=== PATIENT | male | born 1945 | race Caucasian/White ===

== ENCOUNTER → 2017-09-12 | Day surgery (SDC) | payer OTHER ==
[2017-08-28 15:25] VITALS: BMI 32.0
[~2017-09-12] VITALS: Ht 182.9 cm; Wt 106.8 kg
[~2017-09-12] MED LIST: CMD4 PO; CYAN100020 PO; FINA5TAB PO; LIDOCAINE HCL 2% 2 ML VIAL (20MG/ML) ONE; MIDAZOLAM HCL 1 MG/ML 2ML VIAL ONE; PROPOFOL IV EMULSION 10 MG/ML 20 ML VIAL IV ONE; SODIUM CHLORIDE 0.9% 500ML 500 ML IV ONE; TAMS0.4C38 PO; TRIATAB3 PO
[2017-09-12 10:56] VITALS: Ht 182.9 cm; Wt 106.8 kg
--- NOTE | 2017-09-12 11:16 | Endo History and Physical ---
History & Physical Date of Service: Sep 12, 2017. Chief Complaint: SCREENING Referring Physician: DR GIOVANY TERRELL History of Present Illness 72 yo CM who presents for screening colonoscopy. Past Surgical History Hx Cardiac Surgery: No Hx Internal Defibrillator: No Hx Pacemaker: No Hx Abdominal Surgery: Yes (APPY) Hx of Implantable Prosthesis: No Hx Post-Op Nausea and Vomiting: No Hx Cancer Surgery: Yes (SKIN EXCISION REMOVED) Hx Thoracic Surgery: No Hx Orthopedic: No Hx Urinary Tract Surgery: No Family History None Social History Smoking Status: Never Smoker Hx Substance Use: No Hx Alcohol Use: Yes (OCCASIONALLY) Allergies Coded Allergies: No Known Allergies (Unverified , 09/12/17) Current Medications Reported Home Medications Medications Dose Route/Sig Max Daily Dose Days Date Category Dose Instructions Vitamin B12 (Cyanocobalamin) 1,000 Mcg Tab 1 Tab PO QAM 08/28/17 Reported Proscar (Finasteride) 5 Mg Tab 5 Mg PO QAM 08/28/17 Reported Triamterene/Hctz 37.5-25MG (Triamterene/HCTZ) 1 Tab Tab 1 Tab PO QAM 08/28/17 Reported Flomax (Tamsulosin Hcl) 0.4 Mg Cap 0.4 Mg PO QAM 08/28/17 Reported Coumadin (Warfarin Sod) 4 Mg Tab 1 Tab PO DIRECTED 08/28/17 Reported TAKES 4 MG, 4MG, 2MG AND REPEAT Vital Signs Weight (Kilograms): 106.82 Height (Feet): 6 Height (Inches): 0 Date Time Temp Pulse Resp B/P (MAP) Pulse Ox O2 Delivery O2 Flow Rate FiO2 09/12/17 11:08 36.6 80 20 134/75 (94) 95 Room Air Physical Exam General Appearance: WD/WN, no apparent distress Respiratory/Chest: Auscultation: breath sounds normal Cardiovascular: Heart Auscultation: RRR Abdomen: Bowel Sounds: normal Inspection & Palpation: soft, non-distended, no tenderness, guarding & rebound Assessment and Plan Assessment: 72 yo CM who presents for screening colonoscopy. Plan: Proceed with colonoscopy.
--- NOTE | 2017-09-12 12:14 | GI REPORT ---
Procedure Date: 09/12/2017 11:21 AM Procedure: Colonoscopy Indications: Screening for colorectal malignant neoplasm Medicines: Monitored Anesthesia Care Complications: No immediate complications. Estimated Blood Loss: Estimated blood loss: none. Procedure: Pre-Anesthesia Assessment: - Prior to the procedure, a History and Physical was performed, and patient medications and allergies were reviewed. The patient's tolerance of previous anesthesia was also reviewed. The risks and benefits of the procedure and the sedation options and risks were discussed with the patient. All questions were answered, and informed consent was obtained. Prior Anticoagulants: The patient has taken Coumadin (warfarin), last dose was 6 days prior to procedure. ASA Grade Assessment: II - A patient with mild systemic disease. After reviewing the risks and benefits, the patient was deemed in satisfactory condition to undergo the procedure. After I obtained informed consent, the scope was passed under direct vision. Throughout the procedure, the patient's blood pressure, pulse, and oxygen saturations were monitored continuously. The scope was introduced through the anus and advanced to the terminal ileum. The colonoscopy was performed without difficulty. The patient tolerated the procedure well. The quality of the bowel preparation was good. The terminal ileum, ileocecal valve, appendiceal orifice, and rectum were photographed. Findings: The perianal and digital rectal examinations were normal. Scattered small-mouthed diverticula were found in the entire colon. Non-bleeding internal hemorrhoids were found during retroflexion. The hemorrhoids were small. Impression: - Diverticulosis in the entire examined colon. - Non-bleeding internal hemorrhoids. - No specimens collected. Recommendation: - Resume previous diet. - Continue present medications. - No repeat colonoscopy due to age and the absence of advanced adenomas. - Return to primary care physician as previously scheduled. Nito Henderson DO 09/12/2017 12:14:07 PM This report has been signed electronically. Note Initiated On: 09/12/2017 11:21 AM I attest to the content of the Intraoperative Record and orders documented therein, exceptions below
--- NOTE | 2017-09-12 12:18 | Discharge Instructions ---
Endoscopy Patient Instructions Date / Procedure(s) Performed Sep 12, 2017. Colonoscopy Allergy Information Coded Allergies: No Known Allergies (Unverified , 09/12/17) Discharge Date / Findings Sep 12, 2017. Diverticulosis Internal hemorrhoids Medication Instructions Stopped Medication(s): coumadin OK to resume all medications today as prescribed Reported Home Medications Medications Dose Route/Sig Max Daily Dose Days Date Category Dose Instructions Vitamin B12 (Cyanocobalamin) 1,000 Mcg Tab 1 Tab PO QAM 08/28/17 Reported Proscar (Finasteride) 5 Mg Tab 5 Mg PO QAM 08/28/17 Reported Triamterene/Hctz 37.5-25MG (Triamterene/HCTZ) 1 Tab Tab 1 Tab PO QAM 08/28/17 Reported Flomax (Tamsulosin Hcl) 0.4 Mg Cap 0.4 Mg PO QAM 08/28/17 Reported Coumadin (Warfarin Sod) 4 Mg Tab 1 Tab PO DIRECTED 08/28/17 Reported TAKES 4 MG, 4MG, 2MG AND REPEAT Provider Instructions Activity Restrictions - No exercising or heavy lifting for 24 hours. - Do not drink alcohol the day of the procedure. - Do not drive a car or operate machinery until the day after the procedure. - Do not make any important decisions or sign important papers in 24 hours after the procedure. Following Day: - Return to full activity which may include returning to work/school. Diet Start your diet with liquids and light foods (jello, soup, juice, toast). Then eat your usual diet if not nauseated. Treatment For Common After Affects For mild abdominal pain, bloating, or excessive gas: - Rest - Eat lightly - Lie on right side Follow-Up Information Follow-up with DR GIOAVNY TERRELL as scheduled Anesthesia Information What You Should Know You have had a procedure that required some medicine to reduce anxiety and discomfort. This treatment is called moderate sedation. After receiving the treatment, you may be sleepy, but you will be able to breathe on your own. The effects of the treatment may last for several hours. Follow these instructions along with Activity/Diet recommendations noted above: * Do NOT do anything where dizziness or clumsiness would be dangerous. * Rest quietly at home today, then you can be up and about tomorrow. * Have a responsible person stay with you the rest of today. * You may have had an I.V. today. If so, you may take the dressing off later today. Recommendations Call your doctor if: * Trouble breathing * Continuous vomiting for more than 24 hours * Temperature above 101 degrees * Severe abdominal pain or bloating * Pain not relieved by pain medicine ordered * There is increased drainage or redness from any incision * A large amount of rectal bleeding greater than 2-3 tablespoons. (If you had a polyp/s removed or have hemorrhoids, a small amount of blood - from the rectum is to be expected.) * You have any unanswered questions or concerns. IN THE EVENT OF A SERIOUS EMERGENCY, GO TO THE NEAREST EMERGENCY ROOM Your discharge instructions were prepared by provider Nito Henderson. Patient Instructions Signature Page Dc Mcfadden Patient (or Guardian) Signature/Date: I have read and understand the instructions given to me by my caregivers. Caregiver/RN/Doctor Signature/Date: The above-named patient and/or guardian has received patient instructions on this date. + Original Patient Signature Page (only) stays with chart. Please make copy for patient.
[2017-09-12 12:45] VITALS: BP 143/97; PULSE 93; O2SAT 98
--- NOTE | 2017-09-12 12:59 | Anesthesiology Progress Note ---
Anesthesia Post Op Note Date & Time Sep 12, 2017 at 12:59 Vital Signs Vital Signs Past 12 Hours Date Time Temp Pulse Resp B/P (MAP) Pulse Ox O2 Delivery O2 Flow Rate FiO2 09/12/17 12:45 93 20 143/97 (112) 98 Room Air 09/12/17 12:32 75 18 95/71 (79) 98 Room Air 09/12/17 12:18 68 12 111/76 (88) 95 Room Air 09/12/17 11:08 36.6 80 20 134/75 (94) 95 Room Air Notes Mental Status: alert / awake / arousable, participated in evaluation Pt Amnestic to Procedure: Yes Nausea / Vomiting: adequately controlled Pain: adequately controlled Airway Patency, RR, SpO2: stable & adequate BP & HR: stable & adequate Hydration State: stable & adequate Anesthetic Complications: no major complications apparent
== END | disposition home or self-care (01) ==
LOC: C.GI 10:10
PROVIDERS: ATTEND Internal Medicine
DX: Z12.11 Encounter for screening for malignant neoplasm of colon (principal); K57.90 Diverticulosis of intestine, part unspecified, without perforation or abscess without bleeding; K64.8 Other hemorrhoids; I10 Essential (primary) hypertension; I48.91 Unspecified atrial fibrillation; Z90.89 Acquired absence of other organs; Z98.890 Other specified postprocedural states; Z79.01 Long term (current) use of anticoagulants; Z85.828 Personal history of other malignant neoplasm of skin

== ENCOUNTER 2024-07-06 14:06 | Inpatient (IN) ==
[2024-07-06 14:42] LABS: Basophils # (auto) 0.03 K/uL (0.00-0.20); Basophils % (auto) 0.5 %; Eosinophils # (auto) 0.07 K/uL (0.00-0.50); Eosinophils % (auto) 1.1 %; Hemoglobin 14.2 g/dl (14.0-18.0); Immature Granulocytes # (auto) 0.01 K/uL (0.01-0.20); Immature Granulocytes % (auto) 0.2 %; Lymphocytes # (auto) 0.65 K/uL (1.20-3.40); Lymphocytes % (auto) 10.4 %; Mean Corpuscular Hemoglobin 30.8 pg (25.0-34.0); Mean Corpuscular Hgb Conc 33.8 g/dL (32.0-36.0); Mean Corpuscular Volume 91.1 fL (80.0-100.0); Monocytes # (auto) 0.34 K/uL (0.11-0.59); Monocytes % (auto) 5.4 %; Neutrophils # (auto) 5.15 K/uL (1.40-6.50); Neutrophils % (auto) 82.4 %; Platelet Count 184 K/uL (130-400); RDW Coefficient of Variation 13.2 % (11.5-14.5); RDW Standard Deviation 43.6 fL (36.4-46.3); Red Blood Count 4.61 M/uL (4.70-6.10); White Blood Count 6.25 K/ul (4.8-10.8)
[2024-07-06 14:56] LABS: Anion Gap 7 (3-11); BUN Creatinine Ratio 26.4 (10-20); Blood Urea Nitrogen 24 mg/dl (6-23); Calcium 9.5 mg/dl (8.6-10.3); Carbon Dioxide 27 mmol/L (21-32); Chloride 104 mmol/L (98-107); Glucose 112 mg/dl (70-99(Fasting)); Potassium 4.3 mmol/L (3.5-5.1); Sodium 138 mmol/L (136-145)
[2024-07-06 15:18] LABS: INR 2.5 (0.9-1.1); Partial Thromboplastin Ratio 1.3; Partial Thromboplastin Time 34 Seconds (21-31); Prothrombin Time 25.2 Seconds (9.0-12.0)
--- NOTE | 2024-07-06 15:22 | Emergency Department Note ---
Impression & Plan Gross hematuria, Diverticulitis, Acute proctitis ED Provider Note HISTORY OF PRESENT ILLNESS: Patient is an 79-year-old male presenting with hematuria. Patient reports that this morning he woke up and went to urinate and noticed that the toilet bowl was full of bright red bloody urine. Denies any passage of clots. He is on Coumadin and his last INR check was months ago. He states he is been on 2.5 mg of daily Coumadin for a number of years. Denies any new changes to medications. Denies any abdominal pain, nausea or vomiting. Denies any lightheadedness or dizziness. Denies any chest pain or shortness of breath. He denies any dysuria. Denies any pain with urination. He wears a urine brief and states that he has noticed bright red bloody discharge throughout the day today, prompting evaluation in the emergency department. ROS: as above PHYSICAL EXAM: Constitutional: Patient appears in no acute distress. HENT: Head: Normocephalic and atraumatic. Eyes: EOMI, PERRL Mouth/Throat: Mucous membranes moist. Neck: Trachea midline. Neck supple. Cardiovascular: Irregular rhythm. No murmurs, rubs or gallops. Intact distal pulses. Pulmonary/Chest: No respiratory distress. Breath sounds clear and equal bilaterally. No wheezes or rales. Abdominal: Abdomen soft, no tenderness, rebound or guarding. Musculoskeletal: No edema, tenderness or deformity noted. Skin: Warm and dry. No rash, erythema, pallor or cyanosis Psychiatric: Appropriate mood and affect for situation. Neurological: Alert and keenly responsive. CN II-XII grossly intact, moving all extremities equally and fully. MDM: - Vitals signs showed hypertension and bradycardia. - History obtained via patient. History as above. - Chronic conditions affecting care: HTN; permanent Afib - Differential diagnoses include, but are not limited to: UTI; ureteral stone; bladder mass; coagulopathy - Order placed for continuous cardiac monitoring. At this time, monitor showed rate of 59 bpm with irregular rhythm, per my interpretation. - External medical records reviewed. Anticoagulation note dated 05/27/2024 was reviewed. Patient is on chronic anticoagulation for his permanent A-fib. He has a goal INR of 2-3. - Laboratory workup interpreted by myself showed normal WBC; stable hemoglobin; INR therapeutic at 2.5; normal electrolytes; normal creatinine - UA showed significant blood - CT abdomen/pelvis with IV contrast showed diverticulitis and wall thickening of the rectum concerning for proctitis. - Patient had about 180 cc urine on bladder scan. - 3 way nelson was inserted to perform continuous bladder irrigation. - IV zosyn ordered for diverticulitis and proctitis. - Discussion was had with case technician about patient's case and need for admission - Hospitalist consulted for admission - [facility] and [facility]. ASSESSMENT AND PLAN: Diagnosis: gross hematuria; diverticulitis; proctitis Plan: admit Past Med/Surg History Problem List (Updated 07/06/24 @ 17:04 by Claribel Crabtree MD) Acute proctitis (Acute) Diverticulitis (Acute) Gross hematuria (Acute) Osteopenia noted on CT Skin tear of right upper extremity (Acute) Cerebral atrophy Pseudobulbar affect Abnormal ankle brachial index (STEFANI) Pressure ulcer of right foot, stage 3 Dyskinesia Permanent atrial fibrillation Gait abnormality (Chronic) Incontinence Cognitive impairment Lower urinary tract symptoms (LUTS) Chronic venous insufficiency (Chronic) Bilateral lower extremity edema Venous stasis BXO (balanitis xerotica obliterans) Contusion of right side of back (Chronic) Neuropathy (Chronic) Anemia (Chronic) Vitamin B12 deficiency (Chronic) HTN (hypertension) (Chronic) Arthritis of right ankle (Chronic) Chronic anticoagulation (Chronic) Urethral stricture Parkinsonism (Chronic) CLINICALLY STABLE PER 05/04/20 PCP NOTE Pancreatic cyst (Chronic) STABLE PER 05/04/20 PCP NOTE- DUE FOR MRI IN 2020 Renal lesion (Chronic) "RIGHT INFERIOR POLE CYSTIC LESION CONSISTENT WITH HEMORRHAGIC OR PROTEINACEOUS CYST" ([facility]) - UNDER OBSERVATION - POSSIBLY REPEATING MRI IN ONE YEAR Urinary incontinence (Chronic) Medical History Hypertension Neuropathy Rosacea Ataxic gait secondary to arthritis in right heel per patient BPH (benign prostatic hyperplasia) Surgical History History of appendectomy History of tooth extraction dental implant x 4 Hx of bilateral cataract extraction History of colonoscopy S/P tonsillectomy and adenoidectomy H/O vasectomy H/O squamous cell carcinoma of skin LEFT HAND AND BACK Family History Father Alzheimer disease Denies family history of Ovarian cancer Prostate cancer Diabetes Myocardial infarction Breast cancer Lung cancer Colorectal cancer Stroke Social History Smoking Status: Never smoker Second Hand Exposure: No; Do You Dip or Chew Tobacco: No; Hx Alcohol Use: Yes Alcohol type: beer and wine Alcohol Intake Frequency: Monthly or Less Alcohol Intake Frequency Comment: social Hx Substance Use: No Preferred Language: Omani Communication Ability: Effective Visual Impairment: No Limitations Hearing Ability: Hard of Hearing [employer] Required: No Beliefs That Will Affect Care: None marital status: Current Living Situation: Spouse Current Living Situation Comment: Spouse able to assist with care as needed current occupational status: retired How many Children do You have: 4 How many Children do You have Comment: assists as needed with care. One son lives with couple and assists with care and errands. Others local and able to assist as needed. One lives out of the area. Feels Safe at Home: Yes Childhood Exposure to Second-Hand Smoke: No Diet: regular caffeine: No during the past year weight has: remained stable Dental Care, Regularly: Yes Physical Activity Frequency: Does not Exercise Seatbelt Use: always Sunscreen Use: No Do you think of yourself as: straight/heterosexual Assistive Devices: Cane Allergies Allergies Allergy/AdvReac Type Severity Reaction Status Date / Time aspirin AdvReac Mild 03/07/23--NOT Verified 07/06/24 16:20 ON WARFARIN---CANNOT TAKE WHILE ON WARFARIN Home Meds Home Medications Medication Instructions Recorded Confirmed ferrous sulfate 325 mg (65 mg 325 mg PO QAM 04/04/19 07/06/24 iron) tablet multivitamin 1 tab PO DAILY 03/29/23 07/06/24 cholecalciferol (vitamin D3) 125 125 mcg PO DAILY 08/08/23 07/06/24 mcg (5,000 unit) capsule cyanocobalamin (vitamin B-12) 1,000 mcg PO Q2D 08/08/23 07/06/24 1,000 mcg capsule mupirocin 2 % topical ointment 1 applic topical BID PRN Rash 07/06/24 07/06/24 nystatin-triamcinolone 100,000 1 applic topical DAILY PRN Rash 07/06/24 07/06/24 unit/g-0.1 % topical cream Previous Rx's Medication Instructions Recorded finasteride 5 mg tablet 5 mg PO QAM #90 tabs 10/27/23 mirabegron 25 mg tablet,extended 25 mg PO DAILY #90 tabs 11/29/23 release 24 hr (Myrbetriq) tamsulosin 0.4 mg capsule See Rx Instructions .Route 05/02/24 .COMPLEX #90 caps triamterene 37.5 See Rx Instructions .Route 05/02/24 mg-hydrochlorothiazide 25 mg .COMPLEX #90 caps capsule warfarin 2.5 mg tablet See Rx Instructions PO UD #95 tabs 05/27/24 Results & Data (ED) Vital Signs Vital Signs - 24 hr 07/06/24 14:09 07/06/24 15:43 07/06/24 15:47 Temperature 36.5 C Temperature Source Temporal Artery Scan Pulse Rate 54 L 59 L Pulse Rate [Apical] 58 L Respiratory Rate 20 16 Respiratory Effort / Characteristics Non-Labored Spontaneous Respiratory Depth Normal Respiratory Pattern Regular Blood Pressure 156/84 H Blood Pressure [Left Arm] 135/81 Blood Pressure Mean 108 Blood Pressure Mean [Left Arm] 99 Pulse Oximetry 100 100 Oxygen Delivery Method Room Air Sepsis Recent Fever Within 48 Hours No Sepsis New/Unexplained Change in Mental Status No Sepsis Action Taken by Nursing No Action Required 07/06/24 17:01 Temperature Temperature Source Pulse Rate Pulse Rate [Apical] 68 Respiratory Rate 16 Respiratory Effort / Characteristics Respiratory Depth Respiratory Pattern Blood Pressure Blood Pressure [Left Arm] 139/72 Blood Pressure Mean Blood Pressure Mean [Left Arm] 94 Pulse Oximetry 98 Oxygen Delivery Method Sepsis Recent Fever Within 48 Hours Sepsis New/Unexplained Change in Mental Status Sepsis Action Taken by Nursing Laboratory Data 07/06/24 14:30 07/06/24 14:30 Lab Results 07/06/24 07/06/24 Range/Units 14:30 15:21 WBC 6.25 (4.8-10.8) K/ul RBC 4.61 L (4.70-6.10) M/uL Hgb 14.2 (14.0-18.0) g/dl Hct 42.0 (42.0-52.0) % MCV 91.1 (80.0-100.0) fL MCH 30.8 (25.0-34.0) pg MCHC 33.8 (32.0-36.0) g/dL RDW Std Deviation 43.6 (36.4-46.3) fL RDW Coeff of Cassie 13.2 (11.5-14.5) % Plt Count 184 (130-400) K/uL MPV 11.0 (9.4-12.4) fL Immature Gran % (Auto) 0.2 % Neut % (Auto) 82.4 % Lymph % (Auto) 10.4 % Emmet % (Auto) 5.4 % Eos % (Auto) 1.1 % Baso % (Auto) 0.5 % Neut # (Auto) 5.15 (1.40-6.50) K/uL Lymph # (Auto) 0.65 L (1.20-3.40) K/uL Emmet # (Auto) 0.34 (0.11-0.59) K/uL Eos # (Auto) 0.07 (0.00-0.50) K/uL Baso # (Auto) 0.03 (0.00-0.20) K/uL Immature Gran # (Auto) 0.01 (0.01-0.20) K/uL PT 25.2 H (9.0-12.0) Seconds INR 2.5 H (0.9-1.1) APTT 34 H (21-31) Seconds PTT Ratio 1.3 Sodium 138 (136-145) mmol/L Potassium 4.3 (3.5-5.1) mmol/L Chloride 104 (98-107) mmol/L Carbon Dioxide 27 (21-32) mmol/L Anion Gap 7 (3-11) BUN 24 H (6-23) mg/dl Creatinine 0.91 (0.6-1.4) mg/dl Est Cr Clr Drug Dosing Not Reportable eGFR 84.67 BUN/Creatinine Ratio 26.4 H (10-20) Glucose 112 H (70-99(Fasting)) mg/dl Calcium 9.5 (8.6-10.3) mg/dl Urine Color Red Urine Appearance Turbid A (Clear) Urine pH 5.0 (4.5-7.5) Ur Specific [place] 1.018 (1.000-1.030) Urine Protein 1+ H (Negative) Urine Glucose (UA) Negative (Negative) Urine Ketones Negative (Negative) Urine Blood 3+ H (Negative) Urine Nitrite Negative (Negative) Urine Bilirubin 1+ H (Negative) Urine Urobilinogen Negative (Negative) Ur Leukocyte Esterase 1+ H (Negative) Urine WBC (Auto) 11-20 H (0-5) /hpf Urine RBC (Auto) >20 H (0-2) /hpf U Hyaline Cast (Auto) 0-2 (0-2) /lpf U Epithel Cells (Auto) 0-2 (0-2) /hpf Urine Bacteria (Auto) None Seen (None Seen) Administered Medications Discontinued Medications Ioversol (Optiray 320 100ml) 94 ml IV ONCE ONE Stop: 07/06/24 15:31 Last Admin: 07/06/24 15:32 Dose: 94 ml Documented By: [facility] Imaging Data Radiologist's Impression: Abdomen/Pelvis CT 07/06/24 14:48 EXAMINATION: Abdomen and pelvis CT with CLINICAL HISTORY: Weight loss PRIORS: None TECHNIQUE: Contiguous axial images were obtained through the abdomen and pelvis with the use of intravenous contrast. Sagittal and coronal reformations are supplied. FINDINGS: Lung bases unremarkable. Calcified right hilar lymph node present representing prior granulomatous exposure. Right hemidiaphragm is elevated. The liver, gallbladder, portal vein, pancreas, spleen, aorta and IVC are morphologically unremarkable. Hypertrophy of the adrenals noted. Moderate bordering on advanced atherosclerotic disease of the abdominal aorta noted. Splenic granulomata of the spleen present. Kidneys enhance symmetrically. Multiple small low-attenuation lesions present throughout the kidneys, not further characterized. No obstructing renal calculus. Nonobstructing right renal calculus measuring 3 mm is present. No hydronephrosis. Urinary bladder distends normally. Prostate within normal limits. A large amount of formed stool present in the colon. Moderate sigmoid colon diverticulosis noted with mild pericolonic inflammatory change. No dilated loops of bowel or extraluminal gas. Mild wall thickening of the rectum noted. Large bilateral inguinal hernias containing fat noted. An umbilical hernia present with fat as contents. In bone windows, moderate osseous demineralization noted. IMPRESSION: 1. Mild sigmoid colon diverticulitis with no acute complication at this time. 2. Possible mild circumferential wall thickening of the rectum which suggesting concurrent proctitis. 3. Nonobstructing right renal calculus measuring 3 mm. ACT 112: Positive. There are findings on this examination that require communication between the performing entity and the patient following Patient Test Result Information Act ([place] ACT 112) guidelines. Electronically signed by Shanna Patel 07-06-2024 4:01 PM Discharge Plan Visit Data Chief Complaint: Hematuria Stated Complaint: HEMTURIA ED Provider: Claribel Crabtree Discharge Problem: Gross hematuria, Diverticulitis, Acute proctitis Forms Stand Alone Forms: My [facility] [employer] Prescriptions Prescriptions: No Action cyanocobalamin (vitamin B-12) 1,000 mcg capsule 1,000 mcg PO Q2D multivitamin Tablet 1 tab PO DAILY Patient Comments: 30 micrograms vitamin k cholecalciferol (vitamin D3) 125 mcg (5,000 unit) capsule 125 mcg PO DAILY warfarin 2.5 mg tablet See Rx Instructions PO UD Qty: 95 1RF Rx Instructions: 2.5mg daily per [facility] orally use as directed; finasteride 5 mg tablet 5 mg PO QAM Qty: 90 3RF Rx Instructions: TAKE 1 TABLET BY MOUTH EVERY MORNING. Myrbetriq 25 mg tablet extended release 24 hr 25 mg PO DAILY Qty: 90 3RF tamsulosin 0.4 mg capsule See Rx Instructions .ROUTE .COMPLEX Qty: 90 3RF Dose Instruction: TAKE 1 CAPSULE BY MOUTH EVERY MORNING Rx Instructions: TAKE 1 CAPSULE BY MOUTH EVERY MORNING triamterene-hydrochlorothiazid 37.5-25 mg capsule See Rx Instructions .ROUTE .COMPLEX Qty: 90 3RF Dose Instruction: TAKE 1 CAPSULE BY MOUTH EVERY MORNING Rx Instructions: TAKE 1 CAPSULE BY MOUTH EVERY MORNING ferrous sulfate 325 mg (65 mg iron) tablet 325 mg PO QAM nystatin-triamcinolone 100,000-0.1 unit/g-% cream 1 applic topical DAILY PRN (Reason: Rash) Rx Instructions: Apply to area of the groin daily for up to 7 days as needed for flaring. mupirocin 2 % ointment 1 applic topical BID PRN (Reason: Rash) Rx Instructions: APPLY TO AFFECTED NOSTRIL TWICE DAILY FOR 2 WEEKS Referrals Referrals: Chetna Cooper MD [Primary Care Provider] -
[2024-07-06] MEDS: OPTIRAY 320 100ml IV ONE (15:32)
[2024-07-06 15:44] LABS: Appearance Urine Turbid (Clear); Bacteria Urine Automated None Seen (None Seen); Bilirubin Urine 1+ (Negative); Blood Urine 3+ (Negative); Cast Urine Automated 0-2 /lpf (0-2); Color Urine Red; Epithelial Cell Urine Auto 0-2 /hpf (0-2); Glucose Urine UA Negative (Negative); Ketones Urine Negative (Negative); Leukocyte Esterase Urine 1+ (Negative); Nitrite Urine Negative (Negative); Protein Urine 1+ (Negative); RBC Urine Automated >20 /hpf (0-2); Specific Gravity Urine 1.018 (1.000-1.030); Urobilinogen Urine Negative (Negative)
--- NOTE | 2024-07-06 16:01 | CT Scan Report ---
EXAMINATION: Abdomen and pelvis CT with CLINICAL HISTORY: Weight loss PRIORS: None TECHNIQUE: Contiguous axial images were obtained through the abdomen and pelvis with the use of intravenous contrast. Sagittal and coronal reformations are supplied. FINDINGS: Lung bases unremarkable. Calcified right hilar lymph node present representing prior granulomatous exposure. Right hemidiaphragm is elevated. The liver, gallbladder, portal vein, pancreas, spleen, aorta and IVC are morphologically unremarkable. Hypertrophy of the adrenals noted. Moderate bordering on advanced atherosclerotic disease of the abdominal aorta noted. Splenic granulomata of the spleen present. Kidneys enhance symmetrically. Multiple small low-attenuation lesions present throughout the kidneys, not further characterized. No obstructing renal calculus. Nonobstructing right renal calculus measuring 3 mm is present. No hydronephrosis. Urinary bladder distends normally. Prostate within normal limits. A large amount of formed stool present in the colon. Moderate sigmoid colon diverticulosis noted with mild pericolonic inflammatory change. No dilated loops of bowel or extraluminal gas. Mild wall thickening of the rectum noted. Large bilateral inguinal hernias containing fat noted. An umbilical hernia present with fat as contents. In bone windows, moderate osseous demineralization noted. IMPRESSION: 1. Mild sigmoid colon diverticulitis with no acute complication at this time. 2. Possible mild circumferential wall thickening of the rectum which suggesting concurrent proctitis. 3. Nonobstructing right renal calculus measuring 3 mm. ACT 112: Positive. There are findings on this examination that require communication between the performing entity and the patient following Patient Test Result Information Act ([place] ACT 112) guidelines. Electronically signed by Shanna Patel 07-06-2024 4:01 PM
--- NOTE | 2024-07-06 17:11 | History & Physical Report ---
Date of Service July 06, 2024 Assessment & Plan (1) Gross hematuria: Plan: Hematuria x 1 day, spontaneously voiding, wears briefs - Admit - H/H stable at admission 14.2 -> Repeat AM - UA turbid, 1+ protein, 3+ blood, 1+ bilirubin, 1+ LE, WBC, RBC, no bacteria - CTAP mild sigmoid colon diverticulitis with no acute complication, possible mild circumferential wall thickening of rectum suggesting concurrent prostatitis, nonobstructing right renal calculus measuring 3 - CBI performed in ED; catheter bag without gross blood or clots at time of visit. - Hold warfarin night of 07/06 (INR 2.5, therapeutic) -> given relative risk of CVA secondary to A-fib and therefore necessity to be anticoagulated, will provide coverage with Lovenox until next dose of warfarin - No urology consult at this time, however consider consult if patient's condition changes (2) Diverticulitis: Plan: Identified on CTAP; no abdominal pain, N/V, or fever/chills; exam completely unremarkable without any tenderness to palpation - H&H stable, no leukocytosis - CMP BUN 24, glucose 112, otherwise grossly WNL - CTAP as above - Since patient is having no abdominal pain or symptoms, will allow clear liquid diet for now and can advance as patient tolerates - Zosyn IV (3) Acute proctitis: Plan: See above (#2) - Zosyn IV (4) Permanent atrial fibrillation: Plan: Previous history of PAF on warfarin 2.5 mg nightly- last dose night of 07/05; Follows with [facility] - No palpitations, not symptomatic from A-fib at his baseline - No EKG obtained on admission-> Pending EKG - Clinically, patient heart rate 60-70s, irregularly irregular rhythm on exam - No echo in records - Anticoagulated with Warfarin -> hold warfarin night of 07/06 Plan Overactive bladder, urinary incontinence- Follows with Dr. Johann Rincon; continue home meds Triamterene-hydrochlorothiazide for lower extremity edema Dispo: Admit Diet: Clear liquids, advance as tolerated VTE prophylaxis: Warfarin 2.5 mg daily at baseline HOWEVER, in lieu of hematuria, will hold dose night of 07/06 and provide dose of Lovenox 40 mg SQ until next dose of warfarin Code: Full Admission and Anticipated Discharge Date Admission Date: 07/06/2024 History of Present Illness Chief Complaint: Hematuria Primary Care Provider: Chetna Cooper MD 79-year-old male presenting for onset of hematuria. ED course: CBC-RBC 4.61, lymphocytes 0.65, otherwise grossly WNL; PT 25.2, INR 2.5, APTT 34; CMP BUN 24, BUN/creatinine ratio 26.4, glucose 112; calcium 9.5; UA turbid, 1+ protein, 3+ blood, 1+ bilirubin, 1+ LE, WBC, RBC, no bacteria; CTAP mild sigmoid colon diverticulitis with no acute complication, possible mild circumferential wall thickening of rectum suggesting concurrent prostatitis, nonobstructing right renal calculus measuring 3 mm. Patient is 79-year-old male PMHx A-fib on warfarin, chronic venous insufficiency, hypertension, and urinary incontinence presenting for hematuria x 1 day. States that this morning when he woke, he noticed that he had gross blood. Continued to have gross blood in briefs throughout the day. Not passing clots. No additional symptoms including but not limited to chest pain, shortness of breath, abdominal pain, N/V/D/C, numbness/tingling, dizziness, s yncope, headache, vision changes, fever or chills, or dysuria. Took all a.m. medications. Please see Dr. Garza's attestation for adjustments/additions to treatment plan: Patient seen, examined at the bedside (E307-1) on July 06, 2024, 7:21pm. Hematuria appears to be transient/resolving with NO blood clots. Patient remains asymptomatic with no concomitant complaints of dysuria, frequency (more than patient's chronic/frequent urination requiring daily diaper @ home), urgency, flank pain, weakness, fatigue, nausea, vomiting, diarrhea, abdominal pain, pelvic pain, hematemesis, hematochezia, or melena on July 06, 2024, 7:21pm. Hence, I surmise that patient's single complaint of one episode of gross hematuria at home on July 06, 2024, is due to acute cystitis/UTI in the setting of home-scheduled mirabegron 25mg PO daily, which promotes urinary retention, urinary stasis, and urinary tract infection, in this patient with concomitant, persistent/chronic AFIB on coumadin 2.5mg PO daily. Patient remains hemodynamically stable despite this transient/resolving episode of gross hematuria. Hence, patient may receive lovenox 40mg SQ daily on July 06, 2024, while holding off his home-scheduled coumadin 2.5mg PO daily as patient's INR is therapeutic at 2.5 (07/06/2024, 2:30pm). I will check vitals, repeat genito-urinary/gastro-intestinal exam, and WBC w/diff in the 07/07/2024 am. At this time, I do not suspect acute diverticulitis as patient has no complaints of fevers, chills, diaphoresis, N/V/D, abdominal pain/pelvic pain at home or in [facility]. Hence, while patient has been started empirically on zosyn IV, I will de- escalate patient to augmentin PO on anticipated D/C home on 07/07/2024, which will serve a dual function: (A) treatment of acute cystitis/UTI; (b) treatment of mild diverticulitis. Allergies Allergy/AdvReac Type Severity Reaction Status Date / Time aspirin AdvReac Mild 03/07/23--NOT Verified 07/06/24 16:20 ON WARFARIN---CANNOT TAKE WHILE ON WARFARIN Home Medications Medication Instructions Recorded Confirmed Type ferrous sulfate 325 mg (65 mg 325 mg PO QAM 04/04/19 07/06/24 History iron) tablet multivitamin 1 tab PO DAILY 03/29/23 07/06/24 History cholecalciferol (vitamin D3) 125 125 mcg PO DAILY 08/08/23 07/06/24 History mcg (5,000 unit) capsule cyanocobalamin (vitamin B-12) 1,000 mcg PO Q2D 08/08/23 07/06/24 History 1,000 mcg capsule finasteride 5 mg tablet 5 mg PO QAM #90 tabs 10/27/23 07/06/24 Rx mirabegron 25 mg tablet,extended 25 mg PO DAILY #90 tabs 11/29/23 07/06/24 Rx release 24 hr (Myrbetriq) tamsulosin 0.4 mg capsule See Rx Instructions .Route 05/02/24 07/06/24 Rx .COMPLEX #90 caps triamterene 37.5 See Rx Instructions .Route 05/02/24 07/06/24 Rx mg-hydrochlorothiazide 25 mg .COMPLEX #90 caps capsule warfarin 2.5 mg tablet See Rx Instructions PO UD #95 tabs 05/27/24 07/06/24 Rx mupirocin 2 % topical ointment 1 applic topical BID PRN Rash 07/06/24 07/06/24 History nystatin-triamcinolone 100,000 1 applic topical DAILY PRN Rash 07/06/24 07/06/24 History unit/g-0.1 % topical cream Past Med/Surg History Problem List Acute proctitis (Acute) Diverticulitis (Acute) Gross hematuria (Acute) Osteopenia noted on CT Skin tear of right upper extremity (Acute) Cerebral atrophy Pseudobulbar affect Abnormal ankle brachial index (STEFANI) Pressure ulcer of right foot, stage 3 Dyskinesia Permanent atrial fibrillation Gait abnormality (Chronic) Incontinence Cognitive impairment Lower urinary tract symptoms (LUTS) Chronic venous insufficiency (Chronic) Bilateral lower extremity edema Venous stasis BXO (balanitis xerotica obliterans) Contusion of right side of back (Chronic) Neuropathy (Chronic) Anemia (Chronic) Vitamin B12 deficiency (Chronic) HTN (hypertension) (Chronic) Arthritis of right ankle (Chronic) Chronic anticoagulation (Chronic) Urethral stricture Parkinsonism (Chronic) CLINICALLY STABLE PER 05/04/20 PCP NOTE Pancreatic cyst (Chronic) STABLE PER 05/04/20 PCP NOTE- DUE FOR MRI IN 2020 Renal lesion (Chronic) "RIGHT INFERIOR POLE CYSTIC LESION CONSISTENT WITH HEMORRHAGIC OR PROTEINACEOUS CYST" ([facility]) - UNDER OBSERVATION - POSSIBLY REPEATING MRI IN ONE YEAR Urinary incontinence (Chronic) Medical History Hypertension Neuropathy Rosacea Ataxic gait secondary to arthritis in right heel per patient BPH (benign prostatic hyperplasia) Surgical History History of appendectomy History of tooth extraction dental implant x 4 Hx of bilateral cataract extraction History of colonoscopy S/P tonsillectomy and adenoidectomy H/O vasectomy H/O squamous cell carcinoma of skin LEFT HAND AND BACK Family History Father Alzheimer disease Denies family history of Ovarian cancer Prostate cancer Diabetes Myocardial infarction Breast cancer Lung cancer Colorectal cancer Stroke Social History Smoking Status: Never smoker Second Hand Exposure: No; Do You Dip or Chew Tobacco: No; Hx Alcohol Use: Yes Alcohol type: wine Alcohol Intake Frequency: Monthly or Less Alcohol Intake Frequency Comment: social Hx Substance Use: No Preferred Language: Swiss Communication Ability: Effective Visual Impairment: No Limitations Hearing Ability: Hard of Hearing Fitness Specialist Required: No Beliefs That Will Affect Care: None marital status: Current Living Situation: Spouse Current Living Situation Comment: Spouse able to assist with care as needed current occupational status: retired How many Children do You have: 4 How many Children do You have Comment: assists as needed with care. One son lives with couple and assists with care and errands. Others local and able to assist as needed. One lives out of the area. Other Information That Helps Us Care for You: No Feels Safe at Home: Yes Safety Concerns: Feels Safe At This Time Childhood Exposure to Second-Hand Smoke: No Diet: regular caffeine: No during the past year weight has: remained stable Dental Care, Regularly: Yes Physical Activity Frequency: Does not Exercise Seatbelt Use: always Sunscreen Use: No Do you think of yourself as: straight/heterosexual Assistive Devices: Cane, Denture - Upper and Walker Review of Systems Review of Systems: All systems reviewed & are unremarkable except as noted in Subjective Physical Exam Physical Exam: General: No acute distress Skin: Warm and dry Head: Normocephalic, atraumatic Eyes: PERRL, conjunctivae clear, sclera non-icteric ENT: External ear and ear canal without swelling; wearing mask Neck: Supple, no LAD Cardio: Regular rate, irregularly irregular rhythm no M/G/R, S1 and S2 normal Resp: No respiratory distress, Lungs CTA in all lobes bilaterally, no wheezes, rales, or rhonchi Abdomen: Soft, symmetric, nontender; no distention; No masses or hepatosplenomegaly MSK: No deformities; pulses palpable and equal; trace edema bilateral lower extremities currently wrapped in dressings from home. Neuro: Awake, alert; Sensation intact bilaterally; CN intact Psych: Appropriate mood and affect. and son present in room at time of visit. Results & Data Results & Data Vital Signs (Past 12 Hours) Vital Signs Temp Pulse Pulse Resp BP BP Pulse Ox 07/06/24 17:01 68 16 139/72 98 07/06/24 15:47 59 L 07/06/24 15:43 58 L 16 135/81 100 07/06/24 14:09 36.5 C 54 L 20 156/84 H 100 O2 Del Method 07/06/24 17:01 07/06/24 15:47 07/06/24 15:43 07/06/24 14:09 Room Air Laboratory Results 07/06/24 15:21 Urine Culture - Pending Urine,Clean Catch 07/06/24 07/06/24 15:21 14:30 WBC 6.25 RBC 4.61 L Hgb 14.2 Hct 42.0 MCV 91.1 MCH 30.8 MCHC 33.8 RDW Std Deviation 43.6 RDW Coeff of Cassie 13.2 Plt Count 184 MPV 11.0 Immature Gran % (Auto) 0.2 Neut % (Auto) 82.4 Lymph % (Auto) 10.4 [place] % (Auto) 5.4 Eos % (Auto) 1.1 Baso % (Auto) 0.5 Neut # (Auto) 5.15 Lymph # (Auto) 0.65 L [place] # (Auto) 0.34 Eos # (Auto) 0.07 Baso # (Auto) 0.03 Immature Gran # (Auto) 0.01 PT 25.2 H INR 2.5 H APTT 34 H PTT Ratio 1.3 Sodium 138 Potassium 4.3 Chloride 104 Carbon Dioxide 27 Anion Gap 7 BUN 24 H Creatinine 0.91 Est Cr Clr Drug Dosing Not Reportable eGFR 84.67 BUN/Creatinine Ratio 26.4 H Glucose 112 H Calcium 9.5 Urine Color Red Urine Appearance Turbid A Urine pH 5.0 Ur Specific [place] 1.018 Urine Protein 1+ H Urine Glucose (UA) Negative Urine Ketones Negative Urine Blood 3+ H Urine Nitrite Negative Urine Bilirubin 1+ H Urine Urobilinogen Negative Ur Leukocyte Esterase 1+ H Urine WBC (Auto) 11-20 H Urine RBC (Auto) >20 H U Hyaline Cast (Auto) 0-2 U Epithel Cells (Auto) 0-2 Urine Bacteria (Auto) None Seen Diagnostic Findings Abdomen/Pelvis CT 07/06/24 14:48 EXAMINATION: Abdomen and pelvis CT with CLINICAL HISTORY: Weight loss PRIORS: None TECHNIQUE: Contiguous axial images were obtained through the abdomen and pelvis with the use of intravenous contrast. Sagittal and coronal reformations are supplied. FINDINGS: Lung bases unremarkable. Calcified right hilar lymph node present representing prior granulomatous exposure. Right hemidiaphragm is elevated. The liver, gallbladder, portal vein, pancreas, spleen, aorta and IVC are morphologically unremarkable. Hypertrophy of the adrenals noted. Moderate bordering on advanced atherosclerotic disease of the abdominal aorta noted. Splenic granulomata of the spleen present. Kidneys enhance symmetrically. Multiple small low-attenuation lesions present throughout the kidneys, not further characterized. No obstructing renal calculus. Nonobstructing right renal calculus measuring 3 mm is present. No hydronephrosis. Urinary bladder distends normally. Prostate within normal limits. A large amount of formed stool present in the colon. Moderate sigmoid colon diverticulosis noted with mild pericolonic inflammatory change. No dilated loops of bowel or extraluminal gas. Mild wall thickening of the rectum noted. Large bilateral inguinal hernias containing fat noted. An umbilical hernia present with fat as contents. In bone windows, moderate osseous demineralization noted. IMPRESSION: 1. Mild sigmoid colon diverticulitis with no acute complication at this time. 2. Possible mild circumferential wall thickening of the rectum which suggesting concurrent proctitis. 3. Nonobstructing right renal calculus measuring 3 mm. ACT 112: Positive. There are findings on this examination that require communication between the performing entity and the patient following Patient Test Result Information Act ([place] ACT 112) guidelines. Electronically signed by Shanna Patel 07-06-2024 4:01 PM Code Status & VTE Plan Code Status Full PG Care Time/CCT Total # of Minutes Spent Total Time Spent with Patient: Total time spent is greater than 50% in coordination of care (as documented) at patient's floor/unit and/or counseling patient: Coding Level of Care Code 56201 INT INP/OBS CARE 2/55MIN Diagnoses Gross hematuria R31.0 Diverticulitis K57.92 Acute proctitis K62.89 Permanent atrial fibrillation I48.21 Time Spent (min) 65
[2024-07-06] MEDS: LIDOCAINE 2% JELLY 5 ML TUBE EXT ONE (17:14)
[2024-07-06] MEDS: PIPERACILLIN/TAZOBACTAM 4.5 GM/100 ML BAG IV ONE (17:26)
[2024-07-06] MEDS ORDERED: Patient's HEIGHT &/or WEIGHT Needed SCH (20:15)
[2024-07-06] MEDS: ENOXAPARIN INJ 40 MG/0.4 ML SYR SQ SCH (21:53)
[2024-07-07 06:19] LABS: Hematocrit (blood only) 36.2 % (42.0-52.0); Hemoglobin 12.5 g/dl (14.0-18.0); Mean Corpuscular Hemoglobin 30.9 pg (25.0-34.0); Mean Corpuscular Hgb Conc 34.5 g/dL (32.0-36.0); Mean Corpuscular Volume 89.6 fL (80.0-100.0); Mean Platelet Volume 11.2 fL (9.4-12.4); Platelet Count 151 K/uL (130-400); RDW Coefficient of Variation 13.1 % (11.5-14.5); RDW Standard Deviation 43.3 fL (36.4-46.3); Red Blood Count 4.04 M/uL (4.70-6.10); White Blood Count 7.44 K/ul (4.8-10.8)
[2024-07-07 06:42] LABS: BUN Creatinine Ratio 19.8 (10-20); Calcium 9.2 mg/dl (8.6-10.3); Creatinine Clr Calc Pharmacy 71.7 ml/min; Potassium 3.9 mmol/L (3.5-5.1)
[2024-07-07 07:34] VITALS: BP 133/83; RESP 16; TEMP 98.6; O2SAT 97
[2024-07-07] MEDS: FINASTERIDE 5 MG TAB PO SCH (07:54)
[2024-07-07] MEDS: TRIAMTERENE/HCTZ 37.5/25MG TAB PO SCH (07:54)
[2024-07-07] MEDS: TAMSULOSIN HCL 0.4 MG CAP PO SCH (07:55)
[2024-07-07] MEDS: CHOLECALCIFEROL 125 MCG (5,000 UNITS) TAB PO SCH (07:55)
[2024-07-07] MEDS: VIBEGRON 75 MG TAB PO SCH (07:55)
[2024-07-07] MEDS: FERROUS SULFATE 325 MG TAB PO SCH (07:55)
[2024-07-07] MEDS: AMOXICILLIN/CLAVULANATE 875 MG TAB PO ONE (11:25)
[2024-07-07 11:29] VITALS: PULSE 60
--- NOTE | 2024-07-07 11:46 | Discharge Summary ---
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 Gross hematuria has not occurred/recurred while patient remained in [facility], thereby obviating the need for any continuous bladder irrigation, which was started in [facility] ER for unclear reasons as patient never complained of concomitant blood clots in association with his one episode of gross hematuria at home. Hence, I discontinued the order for continuous bladder irrigation on discharge date 07/07/2024. I also discontinued the order for nelson catheter insertion, so that patient could go back to wearing his daily diaper at home on discharge date 07/07/2024. Of note, patient's Hb level declined from 14.2 g/dL, MCV 91.1, MCHC 33.8 (07/06/2024, 2:30pm) to 12.5 g/dL, MCV 89.6, MCHC 34.5 (07/07/2024, 5:43am), for which patient did not require or receive any packed RBC transfusion while in [facility], and which resembles the 0.8 g/dL decline from 13.3 g/dL (, 12:30am) to 12.5 g/dL (03/08/2023, 2:55pm), for which patient also did not require or receive any packed RBC transfusion while in [facility]. Of final note, patient maintains a normal Hb range of 14.0 g/dL to 15.0 g/dL (08/24/2018 - 07/28/2023). Hence, I suspect that the 1.7 g/dL decline in Hb levels from , 2:30pm to 07/07/2024, 5:43am is due to a combination of patient's one episode of gross hematuria at home on 07/06/2024, as well as subsequent blood draws performed while patient remained in [facility] from 07/06/2024 to 07/07/2024. On a separate note, to treat patient's acute cystitis/UTI, patient received zosyn 4.5g IV x 1 dose (07/06/2024, 5:00pm) in [facility] ER. Patient subsequently received augmentin 875mg / 125mg IV x 1 dose (07/07/2024, 10:58am) without incident, prior to discharge back to patient's home on 07/07/2024, where patient will continue with augmentin 875mg / 125mg PO bid x 6.5 days (07/07/2024 pm through 07/13/2024 pm) to complete a total of 7 days of oral antibiotic treatment of both acute cystitis / UTI and "mild sigmoid colon diverticulitis with no acute complication at this time." (as noted on 07/06/2024, 2:48pm CT abd/pelvis with IV contrast) at patient's home as patient remains afebrile with no complaints of chills, diaphoresis, dysuria, hematuria, frequency (beyond his chronic urinary incontinence that is typically treated at patient's home with daily diaper(s)), urgency, flank pain, N/V/D, abdominal pain, pelvic pain, hematemesis, hematochezia, or melena on discharge date 07/07/2024. To this end, patient's [id number], [address], [place] [address], received an electronic prescription for augmentin 875mg / 125mg PO bid, #13 tablets, no refills, on discharge date 07/07/2024, prior to discharge back to patient's home on 07/07/2024. In addition, patient was advised to hold off his home-scheduled triamterene 37.5mg - HCTZ 25mg PO daily until 07/10/2024 (on which date, patient may resume taking his home-scheduled triamterene 37.5mg - HCTZ 25mg PO daily), in order to avoid dehydration/hypovolemia caused by this diuretic in the setting of concomitant, acute cystitis/UTI. In addition, patient was advised to hold off his home-scheduled mirabegron 25mg PO daily until 07/14/2024 (on which date, patient may resume taking his home- scheduled mirabegron 25mg PO daily), in order to avoid urinary retention/urinary stasis caused by this beta 3 adrenergic agonist relaxing patient's bladder detrusor muscle. Patient was also advised to follow up with his Urologist Dr. Johann Rincon on an outpatient basis to discuss alternative strategies to mitigate urinary incontinence. Of final note, patient was advised to follow up with his PCP Dr. Chetna Cooper ([facility], [address], [place] [address]) within 3- 5 days of hospital discharge to follow up the official/final 07/06/2024, 3:21pm urine culture results, and to make any adjustments in patient's discharge antibiotic: augmentin 875mg / 125mg PO bid x 6.5 days (07/07/2024 pm through 07/13/2024 pm). (2) Diverticulitis: Incidental report of "Mild sigmoid colon diverticulitis with no acute complication at this time." (as reported on 07/06/2024, 2:48pm CT abd/pelvis with IV contrast) in this patient with NO complaints of fevers, chills, diaphoresis, N/V/D, abdominal pain, pelvic pain, hematemesis, hematochezia, or melena on admission date 07/06/2024 to suggest acute diverticulitis. In addition, patient's WBC remained normal throughout hospitalization @ [facility]: cf., WBC 6.25, N82 L10 M5 E1 B1 (07/06/2024, 2:30pm). cf., WBC 7.44, no differential (07/07/2024, 5:43am). Subsequently, as stated above in bullet #1 (Gross Hematuria), to treat patient's acute cystitis/UTI, patient received zosyn 4.5g IV x 1 dose (07/06/2024, 5:00pm) in [facility] ER. Patient subsequently received augmentin 875mg / 125mg IV x 1 dose (07/07/2024, 10:58am) without incident, prior to discharge back to patient's home on 07/07/2024, where patient will continue with augmentin 875mg / 125mg PO bid x 6.5 days (07/07/2024 pm through 07/13/2024 pm) to complete a total of 7 days of oral antibiotic treatment of both acute cystitis / UTI and "mild sigmoid colon diverticulitis with no acute complication at this time." (as noted on 07/06/2024, 2:48pm CT abd/pelvis with IV contrast) at patient's home as patient remains afebrile with no complaints of chills, diaphoresis, dysuria, hematuria, frequency (beyond his chronic urinary incontinence that is typically treated at patient's home with daily diaper(s)), urgency, flank pain, N/V/D, abdominal pain, pelvic pain, hematemesis, hematochezia, or melena on discharge date 07/07/2024. To this end, patient's [facility] store [id number], [address], [place] [address], received an electronic prescription for augmentin 875mg / 125mg PO bid, #13 tablets, no refills, on discharge date 07/07/2024, prior to discharge back to patient's home on 07/07/2024. (3) Acute proctitis: Incidental report of "Possible mild circumferential wall thickening of the rectum which suggesting concurrent proctitis." (as reported on 07/06/2024, 2:48pm CT abd/pelvis with IV contrast) in this patient with NO complaints of fevers, chills, diaphoresis, N/V/D, abdominal pain, pelvic pain, hematemesis, hematochezia, or melena on admission date 07/06/2024 to suggest acute proctitis. Hence, I have opted to observe this incidental report without further evaluation/intervention while patient remained in [facility]. (4) Permanent atrial fibrillation: Asymptomatic with no complaints of palpitations or chest discomfort. Rate- controlled with admission HR 54 bpm (07/06/2024, 2:09pm) and discharge HR 60 bpm (07/07/2024, 11:27am) with no rate-controlling medication(s) or rhythm- controlling mediation(s) at patient's home or in [facility]. Patient has a CHADS2-VASC score = 2 points (e.g., 2 points for age > 74 years; no points as patient is not female, does not have CHF, HTN, DM, CVD, or PAD), and hence, stands to benefit from continued, long-term, active anticoagulation utilizing patient's home-scheduled coumadin 2.5mg PO qpm with a therapeutic INR 2.5 (07/06/2024, 2:30pm). Patient reports that he last took coumadin 2.5mg PO qpm on Monday (07/05/2024, 5:00pm) at home. Patient did not receive coumadin 2.5mg PO daily on Monday (07/06/2024) at home or in [facility] due to patient's therapeutic INR 2.5 (07/06/2024, 2:30pm). Patient's INR is pending on 07/07/2024. Patient was subsequently advised to resume his home-scheduled coumadin 2.5mg PO daily on 07/07/2024, 5:00pm, on arrival back to patient's home on 07/07/2024, 5:00pm, as patient strives to maintain a therapeutic INR range of 2.0 to 3.0 in the setting of chronic/persistent AFIB. Plan Disposition. Code status, FULL CODE @ home. ACLS was never performed. There were no adverse events noted with this hospitalization. Condition of patient remains fair. Patient demonstrated NO recurrence of his single episode of gross hematuria reported at his home on 07/06/2024. As patient demonstrated unexpectedly rapid clinical improvement while in [facility] overnight from 07/06/2024 to 07/07/2024 am, patient was discharged back to his home on 07/07/2024 am, instead of having to stay the originally anticipated [address] [facility]. Patient was advised to follow up with his PCP Dr. Chetna Cooper ([facility], [address], [place] [address]) within 3-5 days of hospital discharge to follow up the official/final 07/06/2024, 3:21pm urine culture results, and to make any adjustments in patient's discharge antibiotic: augmentin 875mg / 125mg PO bid x 6.5 days (07/07/2024 pm through 07/13/2024 pm). Discharge time, 35 minutes. Of this time period, 17 minutes were spent in coordinating patient's discharge. Admission HPI Per Admitting Provider 79-year-old male presenting for onset of hematuria. ED course: CBC-RBC 4.61, lymphocytes 0.65, otherwise grossly WNL; PT 25.2, INR 2.5, APTT 34; CMP BUN 24, BUN/creatinine ratio 26.4, glucose 112; calcium 9.5; UA turbid, 1+ protein, 3+ blood, 1+ bilirubin, 1+ LE, WBC, RBC, no bacteria; CTAP mild sigmoid colon diverticulitis with no acute complication, possible mild circumferential wall thickening of rectum suggesting concurrent prostatitis, nonobstructing right renal calculus measuring 3 mm. Patient is 79-year-old male PMHx A-fib on warfarin, chronic venous insufficiency, hypertension, and urinary incontinence presenting for hematuria x 1 day. States that this morning when he woke, he noticed that he had gross blood. Continued to have gross blood in briefs throughout the day. Not passing clots. No additional symptoms including but not limited to chest pain, shortness of breath, abdominal pain, N/V/D/C, numbness/tingling, dizziness, syncope, headache, vision changes, fever or chills, or dysuria. Took all a.m. medications. Please see Dr. Garza's attestation for adjustments/additions to treatment plan: Patient seen, examined at the bedside (E307-1) on July 06, 2024, 7:21pm. Hematuria appears to be transient/resolving with NO blood clots. Patient remains asymptomatic with no concomitant complaints of dysuria, frequency (more than patient's chronic/frequent urination requiring daily diaper @ home), urgency, flank pain, weakness, fatigue, nausea, vomiting, diarrhea, abdominal pain, pelvic pain, hematemesis, hematochezia, or melena on July 06, 2024, 7:21pm. Hence, I surmise that patient's single complaint of one episode of gross hematuria at home on July 06, 2024, is due to acute cystitis/UTI in the setting of home-scheduled mirabegron 25mg PO daily, which promotes urinary retention, urinary stasis, and urinary tract infection, in this patient with concomitant, persistent/chronic AFIB on coumadin 2.5mg PO daily. Patient remains hemodynamically stable despite this transient/resolving episode of gross hematuria. Hence, patient may receive lovenox 40mg SQ daily on July 06, 2024, while holding off his home-scheduled coumadin 2.5mg PO daily as patient's INR is therapeutic at 2.5 (07/06/2024, 2:30pm). I will check vitals, repeat genito-urinary/gastro-intestinal exam, and WBC w/diff in the 07/07/2024 am. At this time, I do not suspect acute diverticulitis as patient has no complaints of fevers, chills, diaphoresis, N/V/D, abdominal pain/pelvic pain at home or in [facility]. Hence, while patient has been started empirically on zosyn IV, I will de- escalate patient to augmentin PO on anticipated D/C home on 07/07/2024, which will serve a dual function: (A) treatment of acute cystitis/UTI; (b) treatment of mild diverticulitis. Discharge Exam General: comfortable, coherent, cooperative. Wide awake and alert. Not confused, lethargic, or obtunded. Patient speaks in complete, fluent, and articulate sentences without pause, interruption, cough, or wheeze. HEENT: normocephalic, atraumatic. EOMI, PERRL. No nystagmus, gaze paresis, anisocoria, miosis, mydriasis, hyphema, chemosis, scleral icterus, conjunctivitis, or pterygium. No otorrorhea. No rhinorrhea. No pharyngeal discharge or exudate. Neck: suppler, no stridor, bruit, goiter, JVD, or HJR. Lymph: no cervical, supraclavicular, infraclavicular, axillary, epitrochlear, or inguinal adenopathy. Chest: symmetric rise and fall with respiration. Non-tender to palpation. Lungs: clear to auscultation and percussion. No audible expiratory wheeze, egophony, pectoriloquy, increase in tactile fremitus, or flatness/dullness to percussion at the bases. Heart: RRR, S1 and S2 noted. No S3 or S4 summation gallop. No tripartite friction rub. Grade II/ early systolic murmur @ LLSB, not radiating to the carotids, the axilla, or back. Invariant in regards to the respiratory cycle. Abdomen: soft, non-tender, non-distended. No rebound, guarding, Cerrato's sign, or organomegaly. Bowel sounds auscultated in all 4 quadrants. Extremities: no clubbing, cyanosis, or edema. 2+ pedal pulses bilaterally. Skin: no decubitus ulcer, exanthem, or enanthem. Neurology: alert and oriented in regards to person, place, and time. DTR+ and symmetric. 5/5 motor strength in all 4 extremities, both proximally and distally. No tremors, tics, or myoclonus. Urology: no nelson catheter. No urethral discharge. Discharge Plan Discharge Items Patient Disposition: Home - Self-Care Reason For Visit: HEMTURIA,DIVERTICULITIS Discharge Diagnosis: acute UTI Activity: Resume your previous activity Non-emergency contact: Primary Care Provider Call non-emergency contact if: you have any medication questions Follow-up/Referrals: Chetna Cooper MD [Primary Care Provider] - Diet: Heart Healthy, Low Fat and Low Sodium (2gm) Addtl Attending Provider Instructions: See your PCP Dr. Chetna Cooper within 3-5 days of hospital discharge to discuss the final/official results of 07/06/2024, 3:21pm urine culture as you start a 7 day treatment with augmentin 875mg/125mg PO bid for acute UTI. Pending Studies at Discharge: Yes Studies:: urine culture (07/06/2024, 3:21pm) Stand-Alone Forms: My [employer], Smoking Cessation Medications and DC Order Prescriptions: New amoxicillin-pot clavulanate 875-125 mg tablet 1 tab PO BID Qty: 13 0RF Continued cyanocobalamin (vitamin B-12) 1,000 mcg capsule 1,000 mcg PO Q2D multivitamin Tablet 1 tab PO DAILY Patient Comments: 30 micrograms vitamin k cholecalciferol (vitamin D3) 125 mcg (5,000 unit) capsule 125 mcg PO DAILY warfarin 2.5 mg tablet See Rx Instructions PO UD Qty: 95 1RF Rx Instructions: 2.5mg daily per [facility] orally use as directed; finasteride 5 mg tablet 5 mg PO QAM Qty: 90 3RF Rx Instructions: TAKE 1 TABLET BY MOUTH EVERY MORNING. tamsulosin 0.4 mg capsule See Rx Instructions .ROUTE .COMPLEX Qty: 90 3RF Dose Instruction: TAKE 1 CAPSULE BY MOUTH EVERY MORNING Rx Instructions: TAKE 1 CAPSULE BY MOUTH EVERY MORNING ferrous sulfate 325 mg (65 mg iron) tablet 325 mg PO QAM nystatin-triamcinolone 100,000-0.1 unit/g-% cream 1 applic topical DAILY PRN (Reason: Rash) Rx Instructions: Apply to area of the groin daily for up to 7 days as needed for flaring. mupirocin 2 % ointment 1 applic topical BID PRN (Reason: Rash) Rx Instructions: APPLY TO AFFECTED NOSTRIL TWICE DAILY FOR 2 WEEKS Held Myrbetriq 25 mg tablet extended release 24 hr 25 mg PO DAILY Qty: 90 3RF Hold Instructions: Resume on 07/14/24. triamterene-hydrochlorothiazid 37.5-25 mg capsule See Rx Instructions .ROUTE .COMPLEX Qty: 90 3RF Hold Instructions: Resume on 07/10/24. Dose Instruction: TAKE 1 CAPSULE BY MOUTH EVERY MORNING Rx Instructions: TAKE 1 CAPSULE BY MOUTH EVERY MORNING Discharge Orders: Discharge Order (Routine); Ordered 07/07/24 Ordered By: Dc Garza Admission Data Admit Date/Time: 07/06/24 17:42 Attending Provider: Dc Garza Admit Provider: Dc Garza Primary Care Provider: Chetna Cooper Other Providers: Dc Garza Hospital Stay Data Consultations 07/06/24 17:10 ED Decision to Admit Stat Diagnostic Imagining Performed 07/06/24 14:48 CT Abd and Pelvis [CT abd pelvis IV con only] Stat Pending Results Patient Have Any Pending Studies at Discharge: Yes Discharge Instructions Given to Patient (Per Discharging Provider) See your PCP Dr. Chetna Cooper within 3-5 days of hospital discharge to connor hickey the final/official results of 07/06/2024, 3:21pm urine culture as you start a 7 day treatment with augmentin 875mg/125mg PO bid for acute UTI. Total Time Total Time Spent Total Time Spent (In Minutes): Discharge time, 35 minutes. Of this time period, 17 minutes were spent in coordinating patient's discharge. Coding Level of Care Code 19459 INP/OBS DISCH >30 MIN Diagnoses Gross hematuria R31.0 Diverticulitis K57.92 Acute proctitis K62.89 Permanent atrial fibrillation I48.21
[2024-07-07 12:55] LABS: INR 2.2 (0.9-1.1); Prothrombin Time 21.9 Seconds (9.0-12.0)
[2024-07-08] MEDS ORDERED: CYANOCOBALAMIN (B-12) 500 MCG TABLET PO SCH (09:00)
== END 2024-07-07 14:02 | disposition home or self-care (01) | DRG 690 ==
LOC: SUATTDRO → ED 14:06 → 3E 17:42